=== PATIENT | male | born 1975 | race Caucasian/White ===

== ENCOUNTER 2021-05-31 11:12 | Emergency (ER) | payer OTHER ==
[~2021-05-31 11:12] MED LIST: BACTRIM DS TAB1 EACH PO; CIPRO500 MG PO; FLAGYL500 MG PO; IBUPROFEN600 MG PO; KEFLEX CAP 500500 MG PO; MEDROL4 MG PO; PERCOCET 5/325 T1 EA PO; ZOFRAN ODT 4 MG4 MG PO; ZOFRAN4 MG PO
[2021-05-31 12:51] LABS: HEMOGLOBIN 16.4 gm/dl (14.0-17.5); RED BLOOD COUNT 5.49 M/UL (4.20-5.50); WHITE BLOOD COUNT 9.5 K/UL (4.5-11.0)
[2021-05-31 13:15] LABS: BUN/CREATININE RATIO 10 (0-10)
== END 2021-05-31 15:30 | disposition home or self-care (01) ==
LOC: ER1 11:12
PROVIDERS: Student in an Organized Health Care Education/Training Program
DX: R10.9 Unspecified abdominal pain (principal); I10 Essential (primary) hypertension; F17.200 Nicotine dependence, unspecified, uncomplicated
CPT/HCPCS: 36415; 80053; 82272; 83690; 85025; 99284; Q9967

== ENCOUNTER 2021-08-22 16:14 | Emergency (ER) | payer OTHER ==
[2021-08-22] MEDS ORDERED: LIPITOR TAB 2020 MG PO ×2 (16:40→17:06)
[2021-08-22] MEDS ORDERED: LISINOPRIL40 MG PO ×2 (16:40→17:06)
[2021-08-22] MEDS ORDERED: CATAPRES 0.1MG0.1 MG PO ×2 (16:40→17:06)
[2021-08-22] MEDS ORDERED: LAMOTRIGINE200 MG PO ×2 (16:40→17:06)
== END 2021-08-22 17:06 | disposition home or self-care (01) ==
LOC: ER1 16:14
DX: Z76.0 Encounter for issue of repeat prescription (principal); I10 Essential (primary) hypertension; F17.210 Nicotine dependence, cigarettes, uncomplicated
CPT/HCPCS: 99281